=== PATIENT | male | born 1960 ===

== ENCOUNTER 2025-04-11 16:44 | Emergency (ER) | payer MEDICARE, OTHER ==
[~2025-04-11] VITALS: Ht 167.6 cm; Wt 73.0 kg
[2025-04-11] MEDS ORDERED: Fluorescein Sod 1MG Opth Strips RIGHTEYE ONE (16:55)
[2025-04-11] MEDS ORDERED: Ondansetron HCl 2 MG / ML 2ML Vial IV ONE (17:00)
[2025-04-11 17:34] LABS: BASOPHILS ABSOLUTE AUTO 0.05 K/mm3 (0.00-0.23); BASOPHILS PERCENT AUTO 1 % (0-2); EOSINOPHILS ABSOLUTE AUTO 0.15 K/mm3 (0.00-0.68); EOSINOPHILS PERCENT AUTO 2 % (0-6); Hematocrit 43.0 % (37.0-53.0); Hemoglobin 15.0 g/dL (13.5-17.5); IMMATURE GRAN ABSOLUTE AUTO 0.02 K/mm3 (0.00-0.10); IMMATURE GRAN PERCENT AUTO 0 % (0-1); LYMPHOCYTES ABSOLUTE AUTO 1.41 K/mm3 (0.84-5.20); LYMPHOCYTES PERCENT AUTO 22 % (21-46); MONOCYTES ABSOLUTE AUTO 0.47 K/mm3 (0.16-1.47); MONOCYTES PERCENT AUTO 7 % (4-13); Mean Corpuscular HGB Conc 34.9 g/dL (31.5-36.5); Mean Corpuscular Volume 86 fL (80-100); NEUTROPHILS ABSOLUTE AUTO 4.24 K/mm3 (1.96-9.15); NEUTROPHILS PERCENT AUTO 67 % (41-73); NRBC ABSOLUTE 0.00 K/mm3 (0.00-0.02); NRBC Auto 0.0 /100 WBC (0.0-0.2); Platelet Count 241 K/mm3 (150-400); RDW Coefficient Variation 12.6 % (11.7-14.2); RDW Standard Deviation 39.6 fL (35.1-46.3)
[2025-04-11 17:56] LABS: Alanine Aminotransfer (ALT/SGP 23.0 U/L (12-78); Albumin, Blood 4.0 g/dL (3.4-5.0); Albumin/Globulin Ratio 1.2 (0.8-1.8); Anion Gap 7.0 mmol/L (3-11); Aspartate Aminotrans (AST/SGOT 17.0 U/L (12-37); Bilirubin, Total 0.3 mg/dL (0.1-1.0); Blood Urea Nitrogen 15.0 mg/dL (8-24); CO2, Blood 26.0 mmol/L (21-32); Calcium, Blood 9.1 mg/dL (8.5-10.1); Chloride, Blood 107.0 mmol/L (98-108); Creatinine, Blood 0.9 mg/dL (0.60-1.20); Globulin, Blood 3.3 g/dL (2.2-4.0); Glucose, Blood 101.0 mg/dL (70-99); Potassium, Blood 3.8 mmol/L (3.5-5.5); Sodium, Blood 136.0 mmol/L (136-145); Total Protein, Blood 7.3 g/dL (6.4-8.2)
[2025-04-11] MEDS ORDERED: cefTAZidime 2,000 MG in NS 100 ML IV SCH (18:00)
[2025-04-11 20:03] VITALS: BP 163/83
== END 2025-04-11 21:42 | disposition short-term general hospital (02) ==
LOC: ER 16:44
PROVIDERS: Student in an Organized Health Care Education/Training Program
DX: S05.61XA Penetrating wound without foreign body of right eyeball, initial encounter (principal); Z23 Encounter for immunization; Z94.7 Corneal transplant status; Z91.013 Allergy to seafood; W22.8XXA Striking against or struck by other objects, initial encounter
CPT/HCPCS: 80053; 85025; 90471; 90715; 96365; 96375; 99285-25; A9270; J0713; J2405; J3373; J7050